=== PATIENT | female | born 1975 | race Caucasian/White ===

== ENCOUNTER → 2018-01-19 | Outpatient (CLI) | payer OTHER | LOC: BMCIMAGING 09:16 | PROVIDERS: ATTEND Physician Assistant | DX: M25.861 Other specified joint disorders, right knee (principal) ==

== ENCOUNTER → 2018-02-12 | Outpatient (CLI) | payer OTHER | LOC: FIMAGING 14:56 | PROVIDERS: ATTEND Physician Assistant | DX: Z01.818 Encounter for other preprocedural examination (principal); M17.11 Unilateral primary osteoarthritis, right knee; N83.201 Unspecified ovarian cyst, right side; Z97.5 Presence of (intrauterine) contraceptive device ==

== ENCOUNTER 2018-03-15 06:05 | Observation (INO) | payer OTHER ==
[~2018-03-15 06:05] MED LIST: ROPIVACAINE 0.2% 80 MG, EPINEPHrine 0.2 MG, KETOROLAC TROMETHAMINE 30 MG in SYRINGE 0 ML IU ONE; TRANEXAMIC ACID 1,000 MG in NS 100 ML IV ONE; VANCOMYCIN 1.5 GM in NS 250 ML IV ONE; VANCOMYCIN PHARMACY TO DOSE MISC ONE
[2018-03-15] MEDS ORDERED: ACETAMINOPHEN 325 MG TAB PO ONE (06:18)
[2018-03-15] MEDS ORDERED: FAMOTIDINE 20 MG TAB PO ONE (06:18)
[2018-03-15] MEDS ORDERED: LIDOCAINE 1% 2 ML INJ ID PRN (06:19)
[2018-03-15] MEDS ORDERED: LR 1,000 ML IV ONE (06:19)
--- NOTE | 2018-03-15 06:33 | PDHPUP ---
History & Physical Update H&P update statement: This history and physical update is based on an assessment of the patient which was completed after admission or registration (within 24 hours), but prior to the surgery/procedure. H&P update: no change in patient's condition since H&P completed
--- NOTE | 2018-03-15 06:34 | PDIAF ---
- Diagnosis Diagnosis: right knee djd Code Status: Full Code - Medication Management Discharge Medications: Medications to Continue on Transfer Ibuprofen [Motrin (*)] 200 mg PO DAILY PRN 03/03/18 [Last Taken Unknown] Levonorgestrel [Mirena] 1 each IY .[id number] 03/03/18 [Last Taken Unknown] Sertraline HCl [Zoloft 100mg (*)] 100 mg PO DAILY 03/03/18 [Last Taken Unknown] Discharge Medications: Refer to the Discharge Home Medication list for PRN reason. - Orders Services needed: Physical Therapy Diet Recommendation: no restrictions on diet Diet Texture: Regular Texture Diet Activity/Weight Bearing Restrictions: wbat. range of motion as tolerated. keep dressing in place. if dressing becomes saturated change daily. f/u at two weeks. seek attn for increasing pain, drainage, swelling or other focal complaint - Follow Up Care Current Providers and Referrals: NONE *PRIMARY CARE P,. [Primary Care Provider] -
[2018-03-15] MEDS ORDERED: THROMBIN (BOVINE) 5,000 UNIT VIAL TP ONE ×2 (07:18→08:10)
[2018-03-15] MEDS ORDERED: CALCIUM CHLORIDE 1 GM/10 ML INJ ONE ×2 (07:18→08:10)
[2018-03-15] MEDS ORDERED: MIDAZOLAM 2 MG/2 ML VIAL IVP ONE (08:05)
--- NOTE | 2018-03-15 08:05 | PDANEPAE ---
ANE Past Medical History - Cardiovascular History Hx Hypertension: No Hx Arrhythmias: No Hx Chest Pain: No Hx Coronary Artery / Peripheral Vascular Disease: No Hx CHF / Valvular Disease: No Hx Palpitations: No - Pulmonary History Hx COPD: No Hx Asthma/Reactive Airway Disease: No Hx Recent Upper Respiratory Infection: No Hx Oxygen in Use at Home: No Hx Sleep Apnea: No Sleep Apnea Screening Result - Last Documented: Negative - Neurologic History Hx Cerebrovascular Accident: No Hx Seizures: No Hx Dementia: No - Endocrine History Hx Diabetes: No Hypothyroid: No Hyperthyroid: No Obesity: moderate - Renal History Hx Renal Disorders: No - Liver History Hx Hepatic Disorders: No - Neurological & Psychiatric Hx Hx Neurological and Psychiatric Disorders: No Neurological / Psychiatric History Comment: DEPRESSION, ANXIETY - Cancer History Hx Cancer: No - Congenital Disorder History Hx Congenital Disorders: No - GI History Hx Gastrointestinal Disorders: No - Other Health History Other Health History: OA R KNEE - Chronic Pain History Chronic Pain: Yes (R KNEE) - Surgical History Prior Surgeries: KNEE SCOPE X2;. SHOULDER SCOPE;. EXC R PUBIC BONE OSTEOCHONDROMA X2;. C SECTION X2;. ORAL CYST EXCISED AGE 12;. JEAN PAUL MOREAU Review of Systems Review of Systems: - Exercise capacity METS (RN): 4 METS ANE Patient History - Allergies Allergies/Adverse Reactions: erythromycin base Allergy (Verified 03/09/18 15:40) Vomiting morphine Allergy (Verified 03/09/18 15:22) Itching Penicillins Allergy (Verified 03/09/18 15:22) Rash Sulfa (Sulfonamide Antibiotics) Allergy (Verified 03/09/18 15:23) Rash - Home Medications Home Medications: Ibuprofen [Motrin (*)] 200 mg PO DAILY PRN 03/03/18 [Last Taken 03/08/18] Levonorgestrel [Mirena] 1 each IY .[id number] 03/03/18 [Last Taken Unknown] Sertraline HCl [Zoloft 100mg (*)] 100 mg PO DAILY 03/03/18 [Last Taken 03/14/18] - NPO status NPO Since - Liquids (Date): 03/14/18 NPO Since - Liquids (Time): 21:30 NPO Since - Solids (Date): 03/14/18 NPO Since - Solids (Time): 21:30 - Smoking Hx Smoking Status: Never smoked ANE Labs/Vital Signs - Vital Signs Blood Pressure: 129/77 Heart Rate: 86 Respiratory Rate: 15 O2 Sat (%): 96 Height: 167.64 cm Weight: 91.626 kg ANE Physical Exam - Airway Neck exam: FROM Mallampati Score: Class 1 Mouth exam: normal dental/mouth exam - Pulmonary Pulmonary: no respiratory distress - Cardiovascular Cardiovascular: regular rate and rhythym - ASA Status ASA Status: II ANE Anesthesia Plan Anesthesia Plan: spinal Regional Anesthesia: single shot NB, adductor canal FNB
[2018-03-15] MEDS ORDERED: PROPOFOL/EMULSION 500 MG/50 ML BOTTLE IV ONE ×2 (08:57→09:10)
[2018-03-15] MEDS ORDERED: MIDAZOLAM 2 MG/2 ML VIAL ONE (09:04)
[2018-03-15] MEDS ORDERED: BACITRACIN 50,000 UNITS/10 ML SYR IRR ONE (09:10)
[2018-03-15] MEDS ORDERED: fentaNYL 100 MCG/2 ML INJ ONE ×3 (09:13→10:57)
[2018-03-15] MEDS ORDERED: DIPHENOXYLATE/ATROPINE LOMOTIL 1 TAB PO PRN (10:16)
[2018-03-15] MEDS ORDERED: diphenhydrAMINE 25 MG CAP PO PRN (10:16)
[2018-03-15] MEDS ORDERED: POLYETHYLENE GLYCOL 3350 17 GM PKT PO PRN (10:16)
[2018-03-15] MEDS ORDERED: BISACODYL 10 MG SUPP PR PRN (10:16)
[2018-03-15] MEDS ORDERED: CYCLOBENZAPRINE 10 MG TAB PO PRN (10:16)
[2018-03-15] MEDS ORDERED: traMADol 50 MG TAB PO PRN (10:16)
[2018-03-15] MEDS ORDERED: MAGNESIUM HYDROXIDE 30 ML UDCUP PO PRN (10:16)
[2018-03-15] MEDS ORDERED: PROMETHAZINE HCL 25 MG/ML INJ IVP PRN (10:16)
[2018-03-15] MEDS ORDERED: PROMETHAZINE HCL 25 MG SUPPR PR PRN (10:16)
[2018-03-15] MEDS ORDERED: LACTULOSE 20 GM/30 ML UDCUP PO PRN (10:16)
[2018-03-15] MEDS ORDERED: ONDANSETRON 4 MG/2 ML VIAL IVP PRN ×2 (10:16→11:13)
[2018-03-15] MEDS ORDERED: TEMAZEPAM 15 MG CAP PO PRN (10:16)
[2018-03-15] MEDS ORDERED: ONDANSETRON DISINTEGRATING 4 MG TAB PO PRN (10:16)
--- NOTE | 2018-03-15 10:16 | POSTOPPROG ---
Post Op Note Date of Operation: 03/15/18 Surgeon: Jose Leos Anesthesia: IV Sedation, Spinal Pre-op Diagnosis: right knee djd Post-op Diagnosis: same Indication: same Procedure: right tka Inf/Abcess present in the surg proc area at time of surgery?: No Depth: Deep Incisional (Fascial) EBL: 100-500 Complications: none
[2018-03-15] MEDS ORDERED: LR 1,000 ML IV SCH (10:30)
[2018-03-15] MEDS ORDERED: BUPIVACAINE 0.5% 30 ML SDV ONE (10:32)
[2018-03-15] MEDS: fentaNYL 100 MCG/2 ML INJ IVP PRN ×5 (10:35→11:07)
[2018-03-15] MEDS ORDERED: NALOXONE HCL 0.4 MG/ML INJ IVP PRN (11:13)
[2018-03-15] MEDS ORDERED: HYDROmorphONE/DILAUDID 2 MG/ML INJ IVP PRN (11:13)
[2018-03-15] MEDS ORDERED: NS 500 ML IV PRN (11:13)
[2018-03-15] MEDS ORDERED: HYDROCODONE/APAP 5/325 TAB PO PRN (11:13)
--- NOTE | 2018-03-15 11:16 | POSTANESTH ---
Post Anesthetic Evaluation Cardiovascular Status: Normal, Stable Respiratory Status: Normal, Stable Level of Consciousness/Mental Status: Can Participate in Eval Pain Control: Adequate, Prn Tx Ordered Nausea/Vomiting Control: Adequate, Prn Tx Ordered Complications Possibly Related to Anesthesia: None Noted
[2018-03-15] MEDS: ACETAMINOPHEN 325 MG TAB PO SCH ×2 (12:16→17:19)
[2018-03-15] MEDS: TRANEXAMIC ACID 650 MG TAB PO SCH ×2 (13:15→22:13)
[2018-03-15] MEDS: oxyCODONE IR 5 MG TAB PO PRN ×3 (13:15→20:24)
[2018-03-15] MEDS: SENNOSIDES/DOCUSATE SODIUM TAB PO SCH (20:23)
[2018-03-15] MEDS: ASPIRIN 325 MG TAB PO SCH (20:23)
[2018-03-15] MEDS: FAMOTIDINE 20 MG TAB PO SCH (20:24)
[2018-03-16] MEDS: ACETAMINOPHEN 325 MG TAB PO SCH ×3 (00:07→11:33)
[2018-03-16] MEDS: TRANEXAMIC ACID 650 MG TAB PO SCH (05:56)
[2018-03-16] MEDS: oxyCODONE IR 5 MG TAB PO PRN ×3 (05:56→12:37)
--- NOTE | 2018-03-16 07:33 | PDIAF ---
- Diagnosis Diagnosis: right knee djd Code Status: Full Code - Medication Management Discharge Medications: Medications to Continue on Transfer Ibuprofen [Motrin (*)] 200 mg PO DAILY PRN 03/03/18 [Last Taken 03/08/18] Levonorgestrel [MIRENA] 1 each IY .[id number] 03/03/18 [Last Taken Unknown] Sertraline HCl [Zoloft 100mg (*)] 100 mg PO DAILY 03/03/18 [Last Taken 03/14/18] Aspirin [Aspirin 325 mg (*)] 325 mg PO DAILY tab 03/16/18 [Last Taken Unknown] oxyCODONE IR [Oxycodone Ir (*)] 5 - 10 mg PO Q3HRS PRN #50 tab 03/16/18 [Last Taken Unknown] Discharge Medications: Refer to the Discharge Home Medication list for PRN reason. - Orders Services needed: Physical Therapy Diet Recommendation: no restrictions on diet Diet Texture: Regular Texture Diet Activity/Weight Bearing Restrictions: wbat. range of motion as tolerated. keep dressing in place. if dressing becomes saturated change daily. f/u at two weeks. seek attn for increasing pain, drainage, swelling or other focal complaint Additional Instructions: TOTAL JOINT ARTHROPLASTY DISCHARGE INSTRUCTIONS 1. Your surgeon follows the [facility] protocol for reducing your risk of DVT (blood clots) following surgery. Medication will be ordered to prevent blood clots. A sudden increase in calf pain and/or swelling could indicate a blood clot in your leg. If this occurs, please call your surgeon or his/her anesthesiology physician assistant. An ultrasound of the leg may be necessary to diagnose a blood clot. If you have conditions that make you a higher risk for blood clots, your surgeon may use more aggressive ways to prevent them. Notify your surgeon if you think you are a high risk for blood clots. 2. Wear your white surgical stockings (RON hose) for 2 weeks. This decreases your swelling and may help prevent blood clots. It is ok to remove RON hose at night time to give your legs a break. 3. Swelling and bruising in the surgical leg is common. If you feel that it is excessive, please notify your surgeon. 4. Elevate your surgical leg with the ankle above the hip several times every day. Please keep the leg straight when you elevate by putting pillows under your foot. Do not put pillows under your knee. This will make being able to fully straighten more difficult. This is uncomfortable, but try to do it as much as possible. 5. For total knee replacements use compressive wrap on your knee for 3-5 days after surgery, then you can discontinue it. 6. Use a walker or crutches for 1-2 weeks. Progress your weight-bearing as tolerated. You may start to use a cane when you feel stable and safe. 7. You will receive physical therapy instructions in the hospital. Continue those exercises at home. There are additional exercises in the total joint booklet you were given before surgery. Outpatient physical therapy will begin 7- 10 days after surgery. Please schedule this in advance. 8. Use ice on your knee at least 3-5 times every day for 30 minutes. This helps reduce pain and swelling. Also use it at night before falling asleep. 9. Leave your surgical dressing in place for 2 weeks. Your dressing is water resistant, but not waterproof. Cover it with Saran Wrap or Rrfky-z-Pexs before showering. You may shower as soon as you feel safe entering a shower. If you notice bleeding from your incision 2 or 3 days after surgery, please notify your surgeon. 10. Due to narcotics, decreased activity and altered diet, most patients experience constipation after surgery. Use [id number] stool softeners while you are on narcotics. 11. You may drive a car when you are comfortable bearing weight, have good muscular control of your leg and are off narcotics. This usually occurs 2-4 weeks after surgery, depending on which leg was operated on. 12. If there are questions not addressed here, please refer the [facility] book given for more information. If you still have questions, please contact your surgeon s office. 13. If you have a life-threatening emergency, please call 911 and go to the emergency room immediately. For non-life threatening emergencies, please call your physicians office for advice before going to the emergency room. - Follow Up Care Current Providers and Referrals: NONE *PRIMARY CARE P,. [Primary Care Provider] - Jose Leos MD [Medical Doctor] -
--- NOTE | 2018-03-16 07:34 | SOAPPROG ---
SOAP Progress Note Assessment/Plan: Assessment: s/p right tka Plan:xrays anatomic d/c when clears pt dvt precautions reviewed f/u at two week 03/16/18 07:33 Subjective: mild pain no cp or sob nael po Objective: Vital Signs Temp Pulse Resp BP Pulse Ox 36.9 C 79 16 112/68 96 03/16/18 04:00 03/16/18 04:00 03/16/18 04:00 03/16/18 04:00 03/16/18 04:00 Laboratory Results 03/16/18 04:45 03/15/18 03/16/18 03/17/18 05:59 05:59 05:59 Intake Total 4415 Output Total 2125 Balance 2290 dressing intact intact pf,df,ehl toes warm and pink neg homans gay xrays stable anatomic alignment ICD10 Worksheet Patient Problems: Problems Problem Status Onset Arthritis of knee Acute - ICD10 Problem Qualifiers (1) Arthritis of knee
[2018-03-16 07:53] VITALS: BP 99/67
[2018-03-16] MEDS ORDERED: SERTRALINE HCL 100 MG TAB PO SCH (09:00)
[2018-03-16] MEDS: FAMOTIDINE 20 MG TAB PO SCH (09:39)
[2018-03-16] MEDS: SENNOSIDES/DOCUSATE SODIUM TAB PO SCH (09:39)
[2018-03-16] MEDS: ASPIRIN 325 MG TAB PO SCH (09:40)
--- NOTE | 2018-03-16 12:25 | ASMTCMCOM ---
CM Note CM Note Notes: Pt s/p OA of knee. PT rec home/outpatient and pt declines HHC need. Pt medically stable for d/c, no CM d/c needs identified. Date Signed: 03/16/2018 12:25 PM Electronically Signed By:FRANCISCO Stover
== END 2018-03-16 13:04 | disposition home health service (06) ==
LOC: F3N 06:05 → INTOOBSV 06:05 → F3N 11:47
PROVIDERS: ADMIT Orthopaedic Surgery; ATTEND Orthopaedic Surgery
DX: M17.11 Unilateral primary osteoarthritis, right knee (principal)
CPT/HCPCS: 27447; 73560; 97110; 97116; 97161; 97165; 97530; G0378; J0171; J1885; J2250; J2704; J2795; J3010; J3370

== ENCOUNTER → 2018-04-26 | Outpatient (CLI) | payer OTHER | LOC: BMCIMAGING 11:04 | PROVIDERS: ATTEND Physician Assistant | DX: Z09 Encounter for follow-up examination after completed treatment for conditions other than malignant neoplasm (principal); Z96.641 Presence of right artificial hip joint ==

== ENCOUNTER → 2018-06-23 | Outpatient (CLI) | payer OTHER | LOC: BMCIMAGING 15:00 | PROVIDERS: ATTEND Physician Assistant | DX: Z47.1 Aftercare following joint replacement surgery (principal); Z96.651 Presence of right artificial knee joint ==

== ENCOUNTER → 2018-09-22 | Outpatient (CLI) | payer OTHER | LOC: BMCIMAGING 14:59 | PROVIDERS: ATTEND Orthopaedic Surgery | DX: Z09 Encounter for follow-up examination after completed treatment for conditions other than malignant neoplasm (principal); Z96.651 Presence of right artificial knee joint ==

== ENCOUNTER → 2019-03-23 | Outpatient (CLI) | payer OTHER | LOC: BMCIMAGING 13:33 ==